=== PATIENT | female | born 1975 | race Two or more races ===

== ENCOUNTER 2021-05-25 08:00 | Outpatient (CLI) | payer OTHER | END 2021-05-25 08:30 | disposition home or self-care (01) | LOC: PPH VACUNA 08:00 | PROVIDERS: ATTEND Emergency Medicine Pediatric Emergency Medicine | DX: Z23 Encounter for immunization (principal) ==

== ENCOUNTER 2025-01-17 12:42 | Emergency (ER) | payer OTHER ==
[~2025-01-17] VITALS: Ht 167.6 cm; Wt 77.1 kg
[2025-01-17] MEDS ORDERED: SYNTHROID150 MCG PO (13:21)
[2025-01-17] MEDS ORDERED: ORPHENADRINE CITRATE 30 MG/ML AMPUL IM STA (13:28)
[2025-01-17] MEDS ORDERED: KETOROLAC TROMETHAMINE 30 MG VIAL IM STA (13:28)
[2025-01-17] MEDS ORDERED: KETOROLAC TROMETHAMINE 30 MG VIAL ONE (13:31)
[2025-01-17] MEDS ORDERED: ORPHENADRINE CITRATE 30 MG/ML AMPUL ONE (13:32)
== END 2025-01-17 15:46 | disposition home or self-care (01) ==
LOC: ER 12:42
DX: M54.42 Lumbago with sciatica, left side (principal); Z88.8 Allergy status to other drugs, medicaments and biological substances